=== PATIENT | female | born 1945 | race Caucasian/White ===

== ENCOUNTER 2021-02-24 10:50 | Inpatient (IN) | payer OTHER ==
[~2021-02-24] VITALS: Ht 152.4 cm; Wt 58.5 kg
[2021-02-24 11:26] LABS: BASOPHILS % 1.5 % (0.0-2.0); EOSINOPHILS % 2.2 % (0.0-5.0); HEMATOCRIT. 35.4 % (36.0-48.0); HEMOGLOBIN. 11.5 g/dL (12.0-16.0); LYMPHOCYTES % 48.5 % (20.0-50.0); MEAN CORPUSCULAR HEMOGLOBIN 28.2 pg (28.0-32.0); MEAN CORPUSCULAR VOLUME 86.7 fL (81.0-99.0); MEAN PLATELET VOLUME 8.1 fl (7.4-10.4); MONOCYTES % 7.8 % (2.0-8.0); PLATELET 354 x1000/uL (130-400); RED BLOOD CELL COUNT 4.08 mill/uL (4.2-5.4); RED CELL DISTRIBUTION WIDTH 15.2 % (11.6-14.6)
[2021-02-24 11:35] LABS: CHLORIDE 109 mEq/L (98-107); PROTHROMBIN TIME 10.9 sec (9.6-11.0)
[2021-02-24] MEDS ORDERED: SODIUM CHLORIDE 0.9% 1,000 ML IV ONE (12:00)
[2021-02-24] MEDS ORDERED: VANCOMYCIN 1 G PREMIX 200 ML IV ONE (12:45)
[2021-02-24] MEDS ORDERED: PIPERACILLIN/TAZ 3.375G PREMIX 50 ML IV ONE (12:45)
[2021-02-24] MEDS: ENOXAPARIN 40MG/0.4ML SYR SUBCUT SCH (14:00)
[2021-02-24 14:15] LABS: CLARITY URINE CLEAR (CLEAR); COLOR URINE YELLOW (YELLOW); KETONES URINE NEGATIVE (NEGATIVE); LEUKOCYTE ESTERASE URINE TRACE (NEGATIVE); NITRITE URINE POSITIVE (NEGATIVE); OCCULT BLOOD URINE NEGATIVE (NEGATIVE); PH URINE 6.5 (4.5-8.0); PROTEIN URINE NEGATIVE (NEGATIVE); SPECIFIC GRAVITY URINE 1.009 (1.005-1.030); UROBILINOGEN URINE 0.2 E.U./dL (0.2-1.0)
[2021-02-24] MEDS ORDERED: IPRATROPIUM/ALBUTEROL 0.5-3(2.5)MG/3ML NEB NEB PRN (14:15)
[2021-02-24] MEDS ORDERED: NITROGLYCERIN 0.4MG TABLET SL SL PRN (14:15)
[2021-02-24] MEDS ORDERED: ZOLPIDEM TARTRATE 5MG TABLET PO PRN (14:15)
[2021-02-24] MEDS ORDERED: MAGNESIUM/ALUMINUM HYDROXIDE/SIMETHICONE 30ML UDC PO PRN (14:15)
[2021-02-24] MEDS ORDERED: GUAIFENESIN 200MG/10ML SUGAR FREE UDC PO PRN (14:15)
[2021-02-24] MEDS ORDERED: ONDANSETRON HCL 4MG/2ML INJ IV PRN (14:15)
[2021-02-24] MEDS ORDERED: DOCUSATE SODIUM 100MG CAPSULE PO PRN (14:15)
[2021-02-24] MEDS ORDERED: ACETAMINOPHEN 325MG TABLET PO PRN ×2 (14:15)
[2021-02-24] MEDS ORDERED: KETOROLAC 15MG/ML VIAL IV PRN (14:15)
[2021-02-24] MEDS ORDERED: CEFTRIAXONE 1 G PREMIX 50 ML IV SCH (18:00)
[2021-02-25] VITALS (8 sets, daily range): BP systolic 98–163; BP diastolic 61–93
[2021-02-25] MEDS ORDERED: PNEUMOCOCCAL 23-VAL P-SAC VAC 0.5 ML IM ONE (06:01)
[2021-02-25] MEDS: ASCORBIC ACID 500 MG TABLET PO SCH ×3 (06:02→21:04)
[2021-02-25] MEDS: FAMOTIDINE 20MG TABLET PO SCH ×3 (06:02→21:04)
[2021-02-25] MEDS: CLONIDINE 0.1MG TABLET PO PRN (09:42)
[2021-02-25 10:26] LABS: BASOPHILS % 0.8 % (0.0-2.0); EOSINOPHILS % 2.1 % (0.0-5.0); HEMATOCRIT. 42.1 % (36.0-48.0); HEMOGLOBIN. 13.9 g/dL (12.0-16.0); LYMPHOCYTES % 36.8 % (20.0-50.0); MEAN CORPUSCULAR HEMOGLOBIN 28.4 pg (28.0-32.0); MEAN PLATELET VOLUME 8.4 fl (7.4-10.4); MONOCYTES % 6.3 % (2.0-8.0); PLATELET 389 x1000/uL (130-400); RED CELL DISTRIBUTION WIDTH 15.3 % (11.6-14.6)
[2021-02-25] MEDS: ASPIRIN 325MG EC TABLET PO SCH (10:59)
[2021-02-25 11:03] LABS: *AMPHETAMINES SCREEN URINE NEGATIVE (NEGATIVE); *BARBITURATES SCREEN URINE NEGATIVE (NEGATIVE); *BENZODIAZEPINES SCREEN URINE PRESUMTIVE POSITIVE (NEGATIVE); *COCAINE SCREEN URINE NEGATIVE (NEGATIVE); METHADONE URINE SCREEN NEGATIVE (NEGATIVE); OPIATES URINE SCREEN NEGATIVE (NEGATIVE)
[2021-02-25 11:04] LABS: CANNABINOID URINE SCREEN NEGATIVE (NEGATIVE); PHENCYCLIDINE URINE SCREEN NEGATIVE (NEGATIVE)
[2021-02-25 11:09] LABS: CHLORIDE 105 mEq/L (98-107)
[2021-02-25 12:04] LABS: CREATINE KINASE MB FRACTION 1.1 ng/mL (0.5-3.6)
[2021-02-25 12:14] LABS: CREATINE KINASE 82 IU/L (26-192)
[2021-02-25] MEDS: ENOXAPARIN 40MG/0.4ML SYR SUBCUT SCH (15:02)
[2021-02-25] MEDS: ZINC SULFATE 220 MG ( 50 ) CAPSULE PO SCH (15:03)
[2021-02-25] MEDS: CHOLECALCIFEROL (D3) 1000 UNIT TABLET PO SCH (16:41)
[2021-02-25 17:04] LABS: CREATINE KINASE 85 IU/L (26-192)
[2021-02-25 17:05] LABS: CREATINE KINASE MB FRACTION < 1.0 ng/mL (0.5-3.6)
[2021-02-25] MEDS: CEFTRIAXONE 1,000 MG in DEXTROSE 5% WATER 50 ML IV SCH (21:04)
[2021-02-26 04:34] VITALS: BP 122/88
[2021-02-26 08:00] VITALS: BP 124/78
[2021-02-26] MEDS: CHOLECALCIFEROL (D3) 1000 UNIT TABLET PO SCH (08:57)
[2021-02-26] MEDS: ASCORBIC ACID 500 MG TABLET PO SCH ×2 (08:57→20:43)
[2021-02-26] MEDS: FAMOTIDINE 20MG TABLET PO SCH ×2 (08:57→20:43)
[2021-02-26] MEDS: ASPIRIN 325MG EC TABLET PO SCH (08:57)
[2021-02-26] MEDS: ZINC SULFATE 220 MG ( 50 ) CAPSULE PO SCH (08:57)
[2021-02-26 12:00] VITALS: BP 118/70
[2021-02-26 16:00] VITALS: BP 118/74
[2021-02-26] MEDS: LACTULOSE 20G/30ML UDC PO SCH ×2 (17:22→20:43)
[2021-02-26] MEDS: ENOXAPARIN 40MG/0.4ML SYR SUBCUT SCH (17:22)
[2021-02-26 19:29] LABS: FOLIC ACID (FOLATE) SERUM > 20.00 ng/mL (>5.38)
[2021-02-26 19:34] LABS: VITAMIN B12 SERUM 707 pg/mL (211-911)
[2021-02-26 20:00] VITALS: BP 122/76
[2021-02-26] MEDS: CEFTRIAXONE 1,000 MG in DEXTROSE 5% WATER 50 ML IV SCH (20:42)
[2021-02-27 04:00] VITALS: BP 104/78
[2021-02-27] MEDS: LACTULOSE 20G/30ML UDC PO SCH ×3 (06:15→21:37)
[2021-02-27 08:00] VITALS: BP 149/99
[2021-02-27] MEDS: ASPIRIN 325MG EC TABLET PO SCH (10:26)
[2021-02-27] MEDS: ASCORBIC ACID 500 MG TABLET PO SCH ×2 (10:27→20:40)
[2021-02-27] MEDS: CHOLECALCIFEROL (D3) 1000 UNIT TABLET PO SCH (10:27)
[2021-02-27] MEDS: ZINC SULFATE 220 MG ( 50 ) CAPSULE PO SCH (10:30)
[2021-02-27 12:00] VITALS: BP 148/82
[2021-02-27 16:00] VITALS: BP 146/79
[2021-02-27] MEDS: ENOXAPARIN 40MG/0.4ML SYR SUBCUT SCH (16:23)
[2021-02-27 20:00] VITALS: BP 166/88
[2021-02-27] MEDS: CLONIDINE 0.1MG TABLET PO PRN (20:10)
[2021-02-27] MEDS: CEFTRIAXONE 1,000 MG in DEXTROSE 5% WATER 50 ML IV SCH (20:10)
[2021-02-27] MEDS ORDERED: FAMOTIDINE 20MG TABLET PO SCH (21:00)
[2021-02-28] VITALS: BP 129/73
[2021-02-28 04:00] VITALS: BP 129/69
[2021-02-28] MEDS: LACTULOSE 20G/30ML UDC PO SCH (06:14)
[2021-02-28 08:00] VITALS: BP 158/89
[2021-02-28] MEDS: ZINC SULFATE 220 MG ( 50 ) CAPSULE PO SCH (09:00)
[2021-02-28] MEDS: ASCORBIC ACID 500 MG TABLET PO SCH (09:00)
[2021-02-28] MEDS: ASPIRIN 325MG EC TABLET PO SCH (09:00)
[2021-02-28] MEDS: CHOLECALCIFEROL (D3) 1000 UNIT TABLET PO SCH (09:00)
[2021-02-28 11:44] VITALS: BP 158/89
[2021-02-28 11:55] VITALS: BP 150/80
== END 2021-02-28 13:45 | disposition home or self-care (01) | DRG 720 ==
LOC: ER 10:50 → 5WST 13:22 → EDBEDREQSVC 13:32 → EDBEDREQ 13:32 → ENRESERV 22:49
PROVIDERS: ADMIT Internal Medicine; ATTEND Internal Medicine
DX: A41.9 Sepsis, unspecified organism (principal); E43 Unspecified severe protein-calorie malnutrition; D63.8 Anemia in other chronic diseases classified elsewhere; I10 Essential (primary) hypertension; N39.0 Urinary tract infection, site not specified; R65.20 Severe sepsis without septic shock; R55 Syncope and collapse; Z68.25 Body mass index [BMI] 25.0-25.9, adult; Z20.822 Contact with and (suspected) exposure to COVID-19
CPT/HCPCS: 36415; 71045; 80053; 80305; 81003; 82550; 82553; 82607; 82746; 83540; 83550; 83605; 83615; 83735; 84100; 84145; 84443; 84484; 85025; 85379; 87426; 93005; 93306; 93970; 99285; J0696; J1650; J2543; J3370; J7030; J7060